=== PATIENT | female | born 1970 | race Caucasian/White ===

== ENCOUNTER 2020-11-30 21:05 | Emergency (ER) | payer SELFPAY ==
[~2020-11-30] VITALS: Ht 160 cm; Wt 85.0 kg
[2020-11-30] MEDS ORDERED: ONDANSETRON ODT 4 MG TAB.RAPDIS PO ONE (21:45)
--- NOTE | 2020-11-30 21:48 | PHYS DOC ---
Past History Past Medical History: Fibromyalgia, Kidney Stones, Migraines, Ovarian Cyst Past Surgical History: Appendectomy, Cholecystectomy, Other Additional Past Surgical Histo: lipsotripsy x 2, surgery for ovarian cyst Additional Smoking Information: vapes Alcohol Use: None Adult General Chief Complaint Chief Complaint: FLANK PAIN HPI HPI Patient is a 50-year-old female with a past medical history significant for multiple episodes of renal lithiasis who presents with a chief complaint of flank pain, on the right more than the left, 7 out of 10 in pain, sharp in nature with a little radiation to the groin. States this feels exactly like previous renal stones. Denies any recent travel, illnesses, fevers, chest pain, shortness of breath, Covid/flu symptoms, hematuria. States she has some mild nausea but no emesis. Review of Systems Review of Systems Review of systems otherwise unremarkable except noted in HPI Allergies Allergies Allergies Coded Allergies Type Severity Reaction Last Updated Verified gentamicin Allergy Unknown 11/30/20 Yes Physical Exam Physical Exam Constitutional: Well developed, well nourished, no acute distress, non-toxic appearance. [] HENT: Normocephalic, atraumatic, bilateral external ears normal, oropharynx moist, no oral exudates, nose normal. [] Eyes: conjunctiva normal, no discharge. [] Neck: Normal range of motion, no tenderness, supple, no stridor. [] Cardiovascular:Heart rate regular rhythm, no murmur [] Lungs & Thorax: Bilateral breath sounds clear to auscultation [] Abdomen: soft, no tenderness, no masses, no pulsatile masses. [] Skin: Warm, dry, no erythema, no rash. [] Back: CVA tenderness. [] Extremities: No tenderness, no cyanosis, no clubbing, ROM intact, no edema. [] Neurologic: Alert and oriented X 3, normal motor function, normal sensory function, no focal deficits noted. [] Psychologic: Affect normal, judgement normal, mood normal. [] Current Patient Data Vital Signs Vital Signs Date Time Temp Pulse Resp B/P (MAP) Pulse Ox O2 Delivery O2 Flow Rate FiO2 11/30/20 21:05 97.7 67 18 110/67 (81) 98 Room Air EKG EKG [] Radiology/Procedures Radiology/Procedures [] Study: CT abdomen/pelvis without intravenous contrast Indication: Right flank and abdominal pain. History of kidney stones. Comparison: None. Technique: Helical CT imaging performed of the abdomen and pelvis without the use of intravenous contrast. Sagittal and coronal reformats were obtained. One or more of the following individualized dose reduction techniques were utilized for this examination: 1. Automated exposure control 2. Adjustment of the mA and/or kV according to patient size 3. Use of iterative reconstruction technique. Findings: Inherently limited evaluation without intravenous contrast. No significant abnormality at the lower chest. Within normal limits liver. Surgically absent gallbladder. Unremarkable biliary tree given absence of the gallbladder. No peripancreatic inflammation. Normal size of the spleen. No adrenal gland mass. Nonobstructing intrarenal stones at the inferior pole of the left kidney. No hydronephrosis on the right or left. No significant wall thickening of the urinary bladder. Unremarkable uterus and adnexa. Small amount of well-formed stool within the colon. Presumed surgical absence of the appendix. Nonobstructed small bowel. Unremarkable stomach. Nonaneurysmal aorta. No lymphadenopathy. No free fluid or pneumoperitoneum. Unremarkable body wall soft tissues. Discogenic arthrosis with disc space narrowing and vacuum phenomenon at L5-S1. Mild osseous neural foraminal stenosis on the right at this level. Impression: 1. No acute abnormality identified throughout the abdomen or pelvis. 2. Small intrarenal stones at the lower pole of the left kidney. No collecting system obstruction on either side. Electronically signed by: JUAN J WRIGHT MD (11/30/2020 10:29 PM) [facility] Heart Score C/O Chest Pain: No Risk Factors: Risk Factors: DM, Current or recent (<one month) smoker, HTN, HLP, family history of CAD, obesity. Risk Scores: Risk Factors: DM, Current or recent (<one month) smoker, HTN, HLP, family history of CAD, obesity. Course & Med Decision Making Course & Med Decision Making Patient is a 50-year-old female who presents with right flank pain for day Vital signs not concerning. Physical exam noted above. Patient given Zofran for nausea and fentanyl for pain. [Laboratory analysis not concerning. CT notable for renal lithiasis but nothing past the renal pelvis. On reassessment patient was feeling better. Discussed differential diagnosis and need for follow-up. Advised to call primary care physician first thing the morning to set up a follow-up visit in the next week or 2 to discuss ED visit. Gave strict return precautions to the ED. Patient grateful, verbalized understanding and agreed with plan of discharge.] Dragon Disclaimer Dragon Disclaimer This electronic medical record was generated, in whole or in part, using a voice recognition dictation system. Departure Departure: Impression: Primary Impression: Flank pain Disposition: 01 DC HOME SELF CARE/HOMELESS Condition: GOOD Referrals: PCP,NO (PCP) Patient Instructions: Diet for Kidney Stones, Flank Pain, Kidney Stones Additional Instructions: Please read all the attached information. You can use Tylenol, ibuprofen and Benadryl at home as needed for pain control. Please stay hydrated. Please call your primary care physician first thing in the morning to update them on your recent ED visit and set up a follow-up. Please come back to the ED with new or concerning symptoms. JENNA RODARTE MD Nov 30, 2020 21:48
[2020-11-30 22:05] LABS: BACTERIA,URINE 0 /HPF (0-FEW); BILIRUBIN,URINE NEG (NEG); CLARITY,URINE CLEAR; COLOR,URINE COLORLESS; GLUCOSE,URINE NEG (NEG); NITRITE,URINE NEG (NEG); RBC,URINE 0 /HPF (0-2); SQUAMOUS EPITHELIAL CELL,UR FEW /LPF; UROBILINOGEN,URINE 0.2 mg/dL (0.2 mg/dL); WBC,URINE 0 /HPF (0-4)
[2020-11-30 22:15] LABS: BASO % 0 % (0-3); EOS # 0.2 x10^3/uL (0.0-0.7); EOS % 2 % (0-3); HEMATOCRIT 39.7 % (36.0-47.0); HEMOGLOBIN 13.2 g/dL (12.0-15.5); LYMPH # 3.4 x10^3/uL (1.0-4.8); LYMPH % 39 % (24-48); MEAN CORPUSCULAR HEMOGLOBIN 32 pg (25-35); MEAN CORPUSCULAR HGB CONC 33 g/dL (31-37); MEAN CORPUSCULAR VOLUME 95 fL (79-100); MONO # 0.8 x10^3/uL (0.0-1.1); MONO % 9 % (0-9); NEUT # 4.3 x10^3uL (1.8-7.7); NEUT % 50 % (31-73); PLATELET COUNT 281 x10^3/uL (140-400); RED BLOOD COUNT 4.19 x10^6/uL (3.50-5.40); RED CELL DISTRIBUTION WIDTH 14.5 % (11.5-14.5); WHITE BLOOD COUNT 8.7 x10^3/uL (4.0-11.0)
[2020-11-30 22:20] LABS: CALCIUM 9.4 mg/dL (8.5-10.1); CREATININE 1.1 mg/dL (0.6-1.0); GFR 52.6; POTASSIUM 3.7 mmol/L (3.5-5.1)
--- NOTE | 2020-11-30 22:31 | RAD ---
Study: CT abdomen/pelvis without intravenous contrast Indication: Right flank and abdominal pain. History of kidney stones. Comparison: None. Technique: Helical CT imaging performed of the abdomen and pelvis without the use of intravenous cont rast. Sagittal and coronal reformats were obtained. One or more of the following individualized dose reduction techniques were utilized for this examinat ion: 1. Automated exposure control 2. Adjustment of the mA and/or kV according to patient size 3. Use of iterative reconstruction technique. Findings: Inherently limited evaluation without intravenous contrast. No significant abnormality at the lower chest. Within normal limits liver. Surgically absent gallbladder. Unremarkable biliary tree given absence of the gallbladder. No peripancreatic inflammation. Normal size of the spleen. No adrenal gland mass. N onobstructing intrarenal stones at the inferior pole of the left kidney. No hydronephrosis on the rig ht or left. No significant wall thickening of the urinary bladder. Unremarkable uterus and adnexa. Small amount of well-formed stool within the colon. Presumed surgical absence of the appendix. Nonobstructed small bowel. Unremarkable stomach. Nonaneurysmal aorta. No lymphadenopathy. No free fluid or pneumoperitoneum. Unremarkable body wall so ft tissues. Discogenic arthrosis with disc space narrowing and vacuum phenomenon at L5-S1. Mild osseo us neural foraminal stenosis on the right at this level. Impression: 1. No acute abnormality identified throughout the abdomen or pelvis. 2. Small intrarenal stones at the lower pole of the left kidney. No collecting system obstruction on either side. Electronically signed by: JUAN J WRIGHT MD (11/30/2020 10:29 PM) [facility]
[2020-11-30 22:54] VITALS: BP 96/45
== END 2020-11-30 22:54 | disposition home or self-care (01) ==
LOC: ER 21:05
DX: R10.31 Right lower quadrant pain (principal); G43.909 Migraine, unspecified, not intractable, without status migrainosus; Z87.442 Personal history of urinary calculi; Z90.89 Acquired absence of other organs; Z90.49 Acquired absence of other specified parts of digestive tract; Z88.1 Allergy status to other antibiotic agents
CPT/HCPCS: 36415; 74176; 80048; 81001; 85025; 96374; 99284; J3010; Q0162